=== PATIENT | female | born 1945 | race Caucasian/White ===

== ENCOUNTER 2018-10-04 12:16 | Emergency (ER) | payer OTHER ==
[~2018-10-04] VITALS: Ht 152.4 cm; Wt 63.5 kg
[2018-10-04 12:51] LABS: ANION GAP 8 mmol/L (7-16); BUN 23 mg/dL (7-18); CALCIUM 9.8 mg/dL (8.5-10.1); CHLORIDE 103 mmol/L (98-107); CO2 29 mmol/L (21-32); CREATININE 0.9 mg/dL (0.6-1.0); GLUCOSE 118 mg/dL (74-106); POTASSIUM 3.8 mmol/L (3.5-5.1); SODIUM 140 mmol/L (136-145)
[2018-10-04 13:00] LABS: ALBUMIN 4.2 g/dL (3.4-5.0); SGOT 28 U/L (15-37); SGPT 39 U/L (30-65); TOTAL BILIRUBIN 0.4 mg/dL (<0.1-1.0); TOTAL PROTEIN 8.3 g/dL (6.4-8.2); TROPONIN-I <0.06 ng/mL (<0.06)
[2018-10-04 14:22] LABS: ANISOCYTOSIS 1+
[2018-10-04 14:31] LABS: HEMATOCRIT 45.8 % (37.0-47.0); HEMOGLOBIN 15.3 gm/dL (12.0-15.0); MCH 28.6 pg (26.0-34.0); MCHC 33.5 g/dL (28.0-37.0); MCV 85.5 fL (80.0-100.0); PLATELET COUNT 144 thou/uL (150-400); RBC 5.36 mil/uL (4.20-5.00); RDW 14.8 % (10.5-14.5); WBC 7.4 thou/uL (4.0-11.0)
[2018-10-04] MEDS ORDERED: LIDOCAINE1 EACH TRANSDERM (14:42)
[2018-10-04] MEDS ORDERED: NAPROSYN500 MG PO (14:42)
[2018-10-04] MEDS ORDERED: HYDROCODONE-AP1 EAC6 PO (14:42)
[2018-10-04] MEDS ORDERED: ONDANSETRON HCL4 M2 PO (14:42)
[2018-10-04] MEDS ORDERED: NORFLEX100 MG PO (14:42)
[2018-10-04] MEDS ORDERED: CELEXA20 MG PO (14:54)
[2018-10-04] MEDS ORDERED: ATORVASTATIN CA40 MG PO (14:55)
[2018-10-04] MEDS ORDERED: INVOKANA100 MG PO (14:55)
[2018-10-04] MEDS ORDERED: MOBIC7.5 MG PO (14:55)
[2018-10-04] MEDS ORDERED: BONIVA150 MG PO (14:55)
[2018-10-04 15:00] VITALS: BP 112/79
--- NOTE | 2018-10-05 16:35 | EKG ---
[facility] [place] [address] ELECTROCARDIOGRAM REPORT Name: BRIAN ROGERS [id number] ������������������ Admission: 10/04/18 ������������������ Attend Phys: Discharge: 10/04/18 ������������������ Date of : 45 Report #: [id number] ����������������������������������������������������������������� [id number] THIS REPORT FOR: //name// [facility] ED Test Date: 2018-10-04 Test Time: 13:09:39 Pat Name: BRIAN ROGERS Department: Room: Gender: Mechanical Inspector: EUGENE : 1945 Requested By: Nora Blanco Order Number: [id number] MD: Cricket Lopez Measurements Intervals [place] Rate: 78 P: 29 [place]: 148 QRS: -17 QRSD: 78 T: 6 QT: 412 QTc: 470 Interpretive Statements Sinus rhythm Borderline left axis deviation Compared to ECG 03/30/2006 07:20:25 Sinus bradycardia no longer present Electronically Signed On 10-05-2018 16:35:14 CDT by Cricket Lopez [email or web address] ��������������������������������������������� <ELECTRONICALLY SIGNED> ���������������������������������������� By: Cricket Lopez MD, [facility] ��������������������������������������������� 10/05/18 1635 1309 1309 Cricket Lopez MD, FACC /EPI
== END 2018-10-04 14:57 | disposition home or self-care (01) ==
LOC: ER 12:16
PROVIDERS: Physician Assistant
DX: G44.209 Tension-type headache, unspecified, not intractable (principal); R07.89 Other chest pain; R11.2 Nausea with vomiting, unspecified; Z98.890 Other specified postprocedural states; Z90.49 Acquired absence of other specified parts of digestive tract; Z88.8 Allergy status to other drugs, medicaments and biological substances